=== PATIENT | female | born 1985 | race Caucasian/White ===

== ENCOUNTER 2019-04-24 17:40 | Emergency (ER) | payer MEDICAID, SELFPAY ==
[2019-04-24 17:41] VITALS: BP 136/87; PULSE 112; RESP 16; TEMP 36.7; O2SAT 96; BMI 58.2
--- NOTE | 2019-04-24 20:06 | ED.VISSUMM ---
- ER Visit Summary Date of Service: 04/24/19 Chief Complaint: Cough and epigastric abdominal pain. History of Present Illness: The patient is a 33 F no seen past medical history. Prior appendectomy, cholecystectomy, hysterectomy and C-sections. Umbilical hernia repair approximately 2 to 3 weeks ago. Patient states that she has a cough just does not feel well and epigastric abdominal pain. Said boys at home do not feel well either. She states she has nausea but no vomiting or diarrhea. No dysuria. No chest pain or shortness of breath. No hemoptysis. Physical Examination: Young female no acute distress vital signs stable afebrile. Pulse ox 96% on room air no signs hypoxia. H EENT exam normal. Moist mucous membranes. Posterior pharynx and TMs normal. Neck nontender no lymphadenopathy. Lungs clear to auscultation bilaterally. Heart regular rhythm rate about 110 no murmur abdomen soft. She is a well-healed periumbilical hernia surgery repair. Is clean and dry. She has mild tenderness in epigastric and upper abdomen. There is no distention no signs of obstruction. Normal bowel sounds soft. Right lower quadrant unremarkable. Extremities moves all 4. Calves are nontender without edema or cords. Neurologically she is awake and alert with no focal motor deficits. Back is nontender. Skin is unremarkable with no rashes. Test Results: BC normal white count of 5. Hemoglobin 15. Electrolytes unremarkable normal creatinine gap. Liver enzymes lipase normal. Chest x-ray chronic changes atelectasis but no acute process. Read both myself and radiologist. Emergency Department Course and Treatment: Female with possibly a viral syndrome. She is also having abdominal pain in the cough screening labs to be obtained along with a chest x-ray. Treatment Plan: Repeat exam patient is doing well at 2135. Exam is benign. She is sitting upright in bed. She and I discussed all of her test results. Plenty of fluids and rest. Treated as a viral syndrome. Disposition: dc Impression: Acute viral URI Status post recent umbilical hernia repair This note was generated with [employer] dictation software. It may contain incorrect words, spelling, and punctuation that were not noted in review of the chart prior to signing ED Disposition - Plan for ED Patient: Referrals: Care Physician,No Primary [Primary Care Provider] -
--- NOTE | 2019-04-24 20:34 | RAD_ITS ---
STUDY: X-RAY CHEST REASON FOR EXAM: Female, 33 years old. COUGH TECHNIQUE: PA and lateral views of the chest. COMPARISON: None. FINDINGS: Linear opacity in the upper left lung consistent with left upper lobe discoid atelectasis or scarring. There is no demonstrated pleural abnormality. Normal size heart. Normal mediastinum and kelly. Normal visualized pulmonary arteries. Normal visualized aortic arch and descending thoracic aorta. Normal visualized thoracic spine. Normal visualized ribs, clavicles, and shoulders. There is no demonstrated abnormality of the visualized soft tissue structures of the upper abdomen. 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 Electronically Signed: Monster Dixon MD at 20:51 EST Tel , Service support ,
[2019-04-24 20:36] LABS: Absolute Lymphocyte Count 0.56 X10^3/uL (0.83-4.51); Absolute Neutrophil Count 4.5 X10^3/uL (2.0-7.7); Basophil# 0.03 X10^3/uL; Basophil% 0.5 % (0-1); Eosinophil# 0.16 X10^3/uL; Eosinophils% 2.8 % (0-5); Hematocrit 45.6 % (37-47); Hemoglobin 15.2 g/dL (12.0-15.0); Lymphocyte # 0.56 X10^3/ul (4.0); Lymphocyte % 9.7 % (19-41); Mean Corp Hgb Conc 33.3 g/dL (32-36); Mean Corpuscular Hgb 29.1 pg (27.0-32.0); Mean Corpuscular Volume 87.4 fL (81-99); Mean Platelet Vol. 10.9 fl (6.2-12.0); Monocyte# 0.53 X10^3/uL; Monocyte% 9.2 % (0-10); NRBC Flagged by Analyzer 0 % (0-5); Neutrophil # 4.46 X10^3/uL (2.7-7.7); Neutrophil % 77.1 % (47-70); POSITIVE DIFFERENTIAL YES; Platelet Count 120 K/mm3 (150-450); RBC Distribution Width CV 12.8 % (11.6-14.6); Red Blood Count 5.22 M/mm3 (4.2-5.4); White Blood Count 5.8 K/mm3 (4.4-11.0)
[2019-04-24 20:41] LABS: Differential Indicated SCAN CRITERIA MET
[2019-04-24 20:56] LABS: Differential Comment SCANNED
[2019-04-24 21:13] LABS: AST(SGOT) 48 U/L (15-37); Alanine Aminotransfer ALT/SGPT 40 U/L (13-56); Albumin, Serum 3.1 g/dL (3.2-5.0); Alkaline Phosphatase 72 U/L (45-117); Anion Gap 6 (5-15); BUN 8 mg/dL (7-18); BUN/Creat Ratio 8.7 RATIO (10-20); Bilirubin, Direct 0.06 mg/dL (0.00-0.30); Calcium,Total 8.8 mg/dL (8.5-10.1); Chloride 109 mmol/L (98-107); Creatinine, Serum 0.92 mg/dL (0.55-1.02); EST Glomerular Filtration Rate 75 mL/min (>60); Est Glom Filt Rate - Afr Amer 91 mL/min (>60); Estimated Creatinine Clearance 78.99 ml/min; Globulin 4.3 g/dL (2.2-4.2); Glucose 87 mg/dL (74-106); Lipase 59 U/L (73-393); Potassium 4.8 mmol/L (3.5-5.1); Protein, Total 7.4 g/dL (6.4-8.2); Sodium Level 135 mmol/L (136-145)
--- NOTE | 2019-04-24 21:37 | ED.DEP ---
ED Disposition - Plan for ED Patient: Disposition: Home or Assisted Living Instructions: VIRAL SYNDROME (Adult) Referrals: Care Physician,No Primary [Primary Care Provider] - 3-5 Days if not improving Additional Instructions: Plenty of fluids and rest. Alternate Tylenol Motrin for pain. Follow-up if not improving.
[2019-04-24 21:48] VITALS: BP 125/87; PULSE 97; RESP 20; O2SAT 94
== END 2019-04-24 21:49 | disposition home or self-care (01) ==
PROVIDERS: Emergency Provider Emergency Medicine
DX: J06.9 Acute upper respiratory infection, unspecified (principal); B34.9 Viral infection, unspecified; Z98.890 Other specified postprocedural states; Z72.0 Tobacco use
CPT/HCPCS: 71046; 80048; 80076; 83690; 85025; 99284; A4216

== ENCOUNTER → 2024-01-17 | Outpatient (CLI) | payer MEDICAID, SELFPAY | END | disposition home or self-care (01) | LOC: SL 20:39 | PROVIDERS: PCP Nurse Practitioner; Referring Provider Nurse Practitioner; Visit Provider Nurse Practitioner | DX: G47.10 Hypersomnia, unspecified (principal); G47.30 Sleep apnea, unspecified; R06.83 Snoring | CPT/HCPCS: 95811 ×2 ==

== ENCOUNTER → 2024-03-28 | Outpatient (CLI) | payer MEDICAID, SELFPAY | END | disposition home or self-care (01) | LOC: SL 12:18 | PROVIDERS: PCP Nurse Practitioner; Referring Provider Nurse Practitioner; Visit Provider Nurse Practitioner | DX: G47.33 Obstructive sleep apnea (adult) (pediatric) (principal); R09.02 Hypoxemia | CPT/HCPCS: 94762 ==